=== PATIENT | female | born 2005 | race Caucasian/White ===

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

== ENCOUNTER 2025-03-18 21:24 | Emergency (ER) | payer OTHER, SELFPAY | END 2025-03-18 23:04 | disposition left against medical advice (07) | PROVIDERS: Emergency Provider Emergency Medicine | DX: M54.50 Low back pain, unspecified (principal) ==

== ENCOUNTER 2025-04-07 10:23 | Outpatient (AMB) | payer OTHER, SELFPAY ==
--- NOTE | 2025-04-07 10:25 | A.OFFVIS_ITS ---
Vital Signs 04/07/25 10:42 Height 5 ft 5 in Weight 239 lb BMI 39.8 BP 104/60 Intake Visit Reasons: Amenorrhea Intake Note: pt c/o no period since Jan, ?PCOS Fitness Club Manager: Fitness Club Manager Present Accompanied by: Significant Other Allergies No Known Allergies [No Known Allergies*] Allergy (Verified 04/07/25 10:25) Is last menstrual period known: Yes Last menstrual period: 01/13/25 HPI Comments Details: Patient is here today with concerns of irregular menses, accompanied by her partner Darell. Cycles skip for several months over the last few years. Menarche age 12. She reports mild facial acne, no hirsutism. UPT was negative today. She is not interested in control and reports she would be open to having a if it happened. [facility] Medical History (Updated 04/07/25 @ 11:57 by Yenni Scott CNM) Acne Family History Maternal Grandmother Lung cancer Father Diabetes Social History Alcohol intake: never Patient Tobacco Use Status: Current someday Tobacco user Current occupational status: employed Current occupation: [employer] Gender identity: Female Female Reproductive History Menstrual Age of Menarche: 13 Date of last menstrual period: 01/13/25 Review of Systems Const All systems reviewed & are unremarkable except as noted in HPI and below Endo Reports no additional complaints Physical Exam Vital Signs: Last Vital Signs BP 104/60 04/07/25 10:42 BMI result Body Mass Index 39.8 Const General: cooperative, healthy appearing and no acute distress Psych Appearance: well kempt Attitude: cooperative Thought process: Normal thought process present Results AMB Test Urine AMB Test Urine Negative Last Edit by JAYLA Silverman on 04/07/25 10:35 Results Reviewed Results Reviewed: Laboratory Last Values [facility] Clinic Negative 04/07/25 10:35 Assessment & Plan Assessment & Plan (1) Irregular menses: Code(s): N92.6 - Irregular menstruation, unspecified Category: Medical Plan: Discussed: Different causes for irregular cycles, PCOS, obesity, other. UPT is negative today. Advised to start a multivitamin or folic acid supplement if not using control to prevent a possible neural tube defect with an unintended . (2) Acne: Code(s): L70.9 - Acne, unspecified Category: Medical Qualifiers: Acne type: unspecified acne Qualified Code(s): L70.9 - Acne, unspecified Plan: Plan lab workup for PCOS and include an ultrasound of the pelvis. Follow up in person for test results. Weight management for cycle control benefit. The patient expressed understanding and agreement with the plan of care. All of her questions and concerns were addressed to the best of my ability. This note is constructed using voice recognition software. While every effort has been made to ensure accuracy, radiographer technologist errors may have been included. Plan See notes above. Orders: Orders Thyroid Stimulating Hormone Today L70.9 - Acne, unspecified, N92.6 - Irregular menstruation, unspecified Prolactin Today L70.9 - Acne, unspecified, N92.6 - Irregular menstruation, unspecified HCG Quantitative Today L70.9 - Acne, unspecified, N92.6 - Irregular menstruation, unspecified AMB HCG Urine Test Today N91.2 - Amenorrhea, unspecified Testosterone, Free/Total Today L70.9 - Acne, unspecified, N92.6 - Irregular menstruation, unspecified 17 Hydroxyprogesterone Today L70.9 - Acne, unspecified, N92.6 - Irregular menstruation, unspecified US pelvic and transvaginal Today L70.9 - Acne, unspecified, N92.6 - Irregular menstruation, unspecified Coding Level of Care Code Est Pt Level 3 (49446) Diagnoses Irregular menses N92.6 Acne, unspecified acne type L70.9 Acne type: unspecified acne
[2025-04-07 10:42] VITALS: BP 104/60; BMI 39.8
== END 2025-04-07 11:16 | disposition home or self-care (01) ==
LOC: HO.HWS 10:23
PROVIDERS: Visit Provider Advanced Practice Midwife
DX: N92.6 Irregular menstruation, unspecified (principal); L70.9 Acne, unspecified; N91.2 Amenorrhea, unspecified
CPT/HCPCS: 99213

== ENCOUNTER → 2025-04-07 10:23 | Outpatient (BNVA) | payer OTHER, SELFPAY | PROVIDERS: Visit Provider Advanced Practice Midwife | DX: N92.6 Irregular menstruation, unspecified (principal); L70.9 Acne, unspecified | CPT/HCPCS: 81025; 99212 ==

== ENCOUNTER 2025-04-18 12:34 | Outpatient (REF) | payer OTHER, SELFPAY ==
--- NOTE | ~2025-04-18 | US_ITS ---
CLINICAL HISTORY: N92.6 - Irregular menstruation, unspecified Exam: Pelvic ultrasound, transabdominal and transvaginal evaluation. Comparison: None. Findings: Transabdominal and transvaginal pelvic ultrasound studies performed. Urinary bladder is minimally distended on the transabdominal images. Uterus is anteverted. Uterus measures 7.8 x 3.0 x 4.6 cm in size. Heterogeneous echotexture throughout the myometrium. Partially exophytic subserosal fibroid is seen off the anterior aspect of the lower uterine segment measuring 7 x 6 x 5 mm in size. Endometrial stripe measures 6 mm in thickness without mass, polyp, or focal thickening. Small nabothian cysts. Right ovary measures 3.0 x 1.7 x 2.0 cm in size. Left ovary measures 3.5 x 1.9 x 2.8 cm in size. Prominent peripheral follicular pattern within both ovaries, [id number]-right. There is echogenic central stroma. Trace free pelvic fluid. Impression: 1. Small anterior partially exophytic fibroid. 2. Ultrasound findings suggestive of polycystic ovarian syndrome. Clinical correlation advised. This document has been electronically signed by: Lenin Casanova MD on 04/19/2025 10:24:21
== END 2025-04-18 12:35 | disposition home or self-care (01) ==
LOC: HO.US 12:34
PROVIDERS: Visit Provider Advanced Practice Midwife
DX: N92.6 Irregular menstruation, unspecified (principal); L70.9 Acne, unspecified
CPT/HCPCS: 76830; 76856

== ENCOUNTER → 2025-04-18 12:36 | Outpatient (BNV) | payer OTHER, SELFPAY | PROVIDERS: Visit Provider Radiology Diagnostic Radiology | DX: D25.9 Leiomyoma of uterus, unspecified (principal) | CPT/HCPCS: 76830; 76856 ==

== ENCOUNTER 2025-04-21 11:17 | Outpatient (REF) | payer OTHER, SELFPAY ==
[2025-04-21 12:32] LABS: HCG Quantitative < 2 mIU/mL
[2025-04-21 12:45] LABS: Thyroid Stimulating Hormone 2.13 uIU/mL (0.32-4.0)
[2025-04-27 11:59] LABS: Testosterone, Free 7.3 pg/mL (0.1-6.4); Testosterone, Total 47 ng/dL (2-45)
== END 2025-04-21 11:18 | disposition home or self-care (01) ==
LOC: HO.LAB 11:17
PROVIDERS: Visit Provider Advanced Practice Midwife
DX: N92.6 Irregular menstruation, unspecified (principal); L70.9 Acne, unspecified
CPT/HCPCS: 36415; 83498; 84146; 84402; 84403; 84443; 84702

== ENCOUNTER 2025-05-03 10:34 | Outpatient (AMB) | payer OTHER, SELFPAY ==
--- NOTE | 2025-05-03 10:36 | MHC.OFFVIS ---
Vital Signs 05/03/25 11:10 Height 5 ft 5 in Weight 238 lb BMI 39.6 BP 110/72 Intake Visit Reasons: US follow up Orchestrator: Orchestrator Present (Mylene) Accompanied by: Spouse Allergies No Known Allergies [No Known Allergies*] Allergy (Verified 05/03/25 10:52) HPI Comments Details: Patient is here today for a follow up on her test results accompanied with her partner. History of irregular cycles and facial acne. Family history of PCOS. LMP January. Labs: Prolactin 8.0, total testosterone 47, free testosterone 7.3, hydroxy progesterone acetate 66. She has used control pills in the past. She denies any contraindications to control such as: migraines with aura, history of DVT or pulmonary emboli, high blood pressure, liver disease, thrombolic disorders, Lupus, +SAM, breast cancer, or smoking. [facility] Medical History (Updated 05/03/25 @ 12:30 by Yenni Scott CNM) Fibroid Counseling for control, oral contraceptives PCOS (polycystic ovarian syndrome) Acne Family History Maternal Grandmother Lung cancer Father Diabetes Social History Alcohol intake: never Patient Tobacco Use Status: Current someday Tobacco user Current occupational status: employed Current occupation: hostess cashier Gender identity: Female Female Reproductive History Menstrual Age of Menarche: 13 Physical Exam Vital Signs: Last Vital Signs BP 110/72 05/03/25 11:10 BMI result Body Mass Index 39.6 Results AMB Test Urine AMB Test Urine Negative Last Edit by Miranda Latham CMA on 05/03/25 12:04 Results Reviewed Results Reviewed: Laboratory Last Values [facility]st Clinic Negative 05/03/25 12:[address] [address] Ultrasound Report Signed Patient: Zarina Duckworth MR#: [id number] : 2005 Acct:[id number] Age/Sex: 19 / F ADM Date: 04/18/25 Loc: HO.US Attending Dr: Yenni Scott CNM Ordering Physician: Yenni Scott CNM Date of Service: 04/18/25 Procedure(s): US pelvic and transvaginal Accession Number(s): [id number] cc: Yenni Scott CNM~ CLINICAL HISTORY: N92.6 - Irregular menstruation, unspecified Exam: Pelvic ultrasound, transabdominal and transvaginal evaluation. Comparison: None. Findings: Transabdominal and transvaginal pelvic ultrasound studies performed. Urinary bladder is minimally distended on the transabdominal images. Uterus is anteverted. Uterus measures 7.8 x 3.0 x 4.6 cm in size. Heterogeneous echotexture throughout the myometrium. Partially exophytic subserosal fibroid is seen off the anterior aspect of the lower uterine segment measuring 7 x 6 x 5 mm in size. Endometrial stripe measures 6 mm in thickness without mass, polyp, or focal thickening. Small nabothian cysts. Right ovary measures 3.0 x 1.7 x 2.0 cm in size. Left ovary measures 3.5 x 1.9 x 2.8 cm in size. Prominent peripheral follicular pattern within both ovaries, [id number]-[id number]-ogpy-right. There is echogenic central stroma. Trace free pelvic fluid. Impression: 1. Small anterior partially exophytic fibroid. 2. Ultrasound findings suggestive of polycystic ovarian syndrome. Clinical correlation advised. This document has been electronically signed by: Lenin Casanova MD on 04/19/2025 10:24:21 Dictated By: Lenin Casanova MD Signed By: <Electronically signed by Lenin Casanova MD in OV> 04/19/25 1025 DD/ 1024 TD/TT: 04/19/25 1024 Labor Relations Or Personnel Negotiator: Assessment & Plan Assessment & Plan (1) Irregular menses: Code(s): N92.6 - Irregular menstruation, unspecified Category: Medical (2) Encounter to discuss test results: Code(s): Z71.2 - Person consulting for explanation of examination or test findings Plan: Reviewed lab work and pelvic ultrasound results indicate a diagnosis of PCOS. UPT is negative today. The patient expressed understanding and agreement with the plan of care. All of her questions and concerns were addressed to the best of my ability. (3) Counseling for control, oral contraceptives: Code(s): Z30.09 - Encounter for other general counseling and advice on contraception Category: Medical Plan: Pill use- Start of pill: within 5 days of a normal menses, if greater than that, use a back up method or abstain for 7 days. Also may start if NO unprotected intimacy since the last normal menses (use a back up method for seven days)9. How to take: Take at the same time of day. Take with food if nausea occurs, and closer to bedtime may be helpful. What to do when missing a pill or taking one late: take as soon as you remember, and use a back up method (condoms, or abstinence is required) for 7 days. Side effects: break through bleeding, nausea, mood changes, breast tenderness, headaches, bloating. Most of these all resolve in the first 2-3 months of use. Warnings: serious complications from the pill associated with a DVT (deep viem thrombosis), risks to stroke, PE (pulmonary emboli), potentially fatal. Report any serious side effects: call 911 and seek medical emergenct treatment for any ACHES . Abdominal pain (sever). Chest pain (difficulty breathing). Headache (severe). Extremity pain(sudden pain in one extermity). Sudden blindness/loss of vision. Report any medical changes to our office so that we can determine if the pill is an appropriate method for continued use. Keep all follow up appointments for pill use surveilance as directed. (4) PCOS (polycystic ovarian syndrome): Code(s): E28.2 - Polycystic ovarian syndrome Category: Medical Plan: Counseled regarding PCOS diagnosis, importance of protecting the endometrial lining to prevent the development of a normal cells that can lead to uterine cancer. Intermittent progesterone versus control discussed referral to Endocrine if indicated for management. She chooses to start control pills. Advised no unprotected intimacy, repeat test as needed at home. Initiate progesterone followed by OCPs. The patient expressed understanding and agreement with the plan of care. All of her questions and concerns were addressed to the best of my ability. This note is constructed using voice recognition software. While every effort has been made to ensure accuracy, ballast regulator operator errors may have been included. (5) Fibroid: Code(s): D21.9 - Benign neoplasm of connective and other soft tissue, unspecified Category: Medical Plan Counseled re: Leiomyoma: common pelvic neoplasm. Differential diagnosis-may include but not limited to- leiomyosarcoma which is a rare uterine sarcoma 3-7/100,000, difficult to distinguish from fibroids on ultrasound from uterine sarcoma's. Unlikely any single test will have a highly positive predictive value. Hysterectomy is not recommended for sole purpose of excluding malignant neoplasm. Consult for surgical exploration, medical treatment, other treatments, verses expectant management, pros and cons, risks and benefits. Expectant management follow up in 6 months, then yearly for stability. Patient prefers to proceed with expectant management. Referral to MD if indicated for level of care if indicated Report any AUB, pelvic pressure, bloating, or pain. The patient expressed understanding and agreement with the plan of care. All of her questions and concerns were addressed to the best of my ability. Total time I personally spent on visit and management today: ?40 minutes. Time spent included review of pertinent office notes in the electronic health record; review of laboratory and imaging results; review of personal family medical history; performing physical exam; discussing diagnosis and plan of care with the patient; documenting the encounter in the EMR. Orders: Orders US pelvic and transvaginal 6 Months D21.9 - Benign neoplasm of connective and other soft tissue, unspecified AMB HCG Urine Test Today Z32.02 - Encounter for test, result negative Medications: New progesterone micronized (Prometrium) 200 mg PO ONCE 10 days 10 caps 0RF E28.2 - Polycystic ovarian syndrome drospirenone-ethinyl estradiol 3-0.02 mg (SUNNY (28)) 1 tab PO DAILY 28 tabs 3RF Coding Level of Care Code Est Pt Level 3 (44323) Diagnoses Irregular menses N92.6 Encounter to discuss test results Z71.2 Counseling for control, oral contraceptives Z30.09 PCOS (polycystic ovarian syndrome) E28.2 Fibroid D21.9
[2025-05-03 11:10] VITALS: BP 110/72; BMI 39.6
--- OUTSIDE RECORDS SUMMARY | 2025-05-03 12:13 | XMS_ITS | Continuity of Care Document ---
Author Organization [facility] Address [address] [place] [id number]- Care Team Providers Care Nailing Machine Feeder Name Role Phone Rosana Capellan LINE PREP COOK, Cristina Primary Care Physician Encounter [facility] Date(s): 03/28/25 - 04/27/[address] [address] Encounter Type: Triage Allergies, Adverse Reactions, Alerts No Known Allergies Immunizations Given and Recorded Vaccine Date Status Refusal Reason [id number] 12y+ bivalent booster vax 06/24/23 Given SARS-CoV-2 (COVID-19) mRNA BNT-162b2 vac 1 12/03/21 Given SARS-CoV-2 (COVID-19) mRNA BNT-162b2 vac 2 11/12/21 Given Meningococcal Conjugate Vaccine 11/12/21 Given influenza virus vaccine, inactivated 11/12/21 Give n influenza virus vaccine, inactivated 01/05/20 Give n influenza virus vaccine, inactivated 07/30/17 Give n influenza virus vaccine, inactivated 10/17/16 Give n influenza virus vaccine, inactivated 09/18/15 Give n influenza virus vaccine, inactivated 09/07/14 Give n influenza virus vaccine, inactivated 08/04/13 Give n influenza virus vaccine, inactivated 11/06/12 Darinel rded influenza virus vaccine, inactivated 11/04/11 Darinel rded influenza virus vaccine, inactivated 11/02/10 Darinel rded tetanus/diphtheria/pertussis, acel(Tdap) 07/30/17 Given Meningococcal Polysaccharide Vaccine 07/30/17 Give n Human Papillomavirus Vaccine 07/30/17 Given Human Papillomavirus Vaccine 04/11/16 Given Hepatitis A Pediatric Vaccine 11/06/12 Given Hepatitis A Pediatric Vaccine 11/04/11 Recorded Poliovirus Vaccine, Inactivated 11/02/10 Recorded Poliovirus Vaccine, Inactivated 04/22/06 Given Poliovirus Vaccine, Inactivated 01/14/06 Given Poliovirus Vaccine, Inactivated 05 Given diphtheria/tetanus/pertussis, acel(DTaP) 11/02/10 Recorded diphtheria/tetanus/pertussis, acel(DTaP) 02/17/07 Given diphtheria/tetanus/pertussis, acel(DTaP) 04/22/06 Given diphtheria/tetanus/pertussis, acel(DTaP) 01/14/06 Given diphtheria/tetanus/pertussis, acel(DTaP) 05 Given Varicella Virus Vaccine 09/22/09 Given Varicella Virus Vaccine 09/19/06 Given Measles/Mumps/Rubella Virus Vaccine 09/22/09 Given Measles/Mumps/Rubella Virus Vaccine 12/19/06 Given Influenza Inactive (IM) (oldterm) 08/17/09 Given Prevnar (oldterm) 08/28/07 Given Prevnar (oldterm) 04/22/06 Given Prevnar (oldterm) 02/14/06 Given Prevnar (oldterm) 05 Given Haemophilus B Conj Vaccine (oldterm) 12/19/06 Give n Haemophilus B Conj Vaccine (oldterm) 04/22/06 Give n Haemophilus B Conj Vaccine (oldterm) 02/14/06 Give n Haemophilus B Conj Vaccine (oldterm) 05 Give n Hepatitis B Vaccine (old term) 04/22/06 Given Hepatitis B Vaccine (old term) 01/14/06 Given Hepatitis B Vaccine (old term) 05 Given 1Result Comment: diluent lot # [id number] exp 05/23 2Result Comment: diluent normal saline lot [id number] 05/23 Problem List Condition Confirmation Course Effective Dates Status H ealth Status Informant Adjustment disorder with mixed anxiety and depressed mood Confirmed Active Asthma Confirmed Active ADHD (attention deficit hyperactivity disorder) Confirmed Active Chronic eczema Confirmed Active Seasonal allergies Confirmed Active Healthy child on routine physical examination Confirmed Active Social History Social History Type Response Sex Female Sex Representation Female (finding) Patient Care team information Care Team Personnel Name: Cristina Bryant NP Position: [facility] PCO Associate Professional Member Role: PCP Address: [address] [place] [id number] Telecom: Care Team Related Persons Name: FRANCISCO ROGERS Name: JAYJAY HU Name: LISSETH CARMONA Insurance Providers Guarantor name: JAYJAY HU Health Plan Information #: 1 Payer: [facility] Member Number: NA Policy Number: NA Group Number: NA
== END 2025-05-03 13:19 | disposition home or self-care (01) ==
LOC: HO.HWS 10:35
PROVIDERS: Visit Provider Advanced Practice Midwife
DX: N92.6 Irregular menstruation, unspecified (principal); Z71.2 Person consulting for explanation of examination or test findings; Z30.09 Encounter for other general counseling and advice on contraception; E28.2 Polycystic ovarian syndrome; D21.9 Benign neoplasm of connective and other soft tissue, unspecified; Z32.02 Encounter for pregnancy test, result negative
CPT/HCPCS: 99213

== ENCOUNTER → 2025-05-03 10:34 | Outpatient (BNVA) | payer OTHER, SELFPAY | PROVIDERS: Visit Provider Advanced Practice Midwife | DX: N92.6 Irregular menstruation, unspecified (principal); E28.2 Polycystic ovarian syndrome; D21.9 Benign neoplasm of connective and other soft tissue, unspecified; Z71.2 Person consulting for explanation of examination or test findings; Z30.09 Encounter for other general counseling and advice on contraception | CPT/HCPCS: 81025; 99212 ==

== ENCOUNTER 2025-05-04 03:12 | Emergency (ER) | payer OTHER, SELFPAY ==
[2025-05-04 03:28] VITALS: BP 121/79; PULSE 98; RESP 18; TEMP 37.3; O2SAT 98; BMI 38.4
--- NOTE | 2025-05-04 04:07 | PC.NURSE ---
labs collected and sent.
[2025-05-04 04:18] LABS: IDNOW Serial# 55D5AD1C; Strep A Nucleic Acid Negative (Negative)
[2025-05-04 04:23] VITALS: O2SAT 98
--- NOTE | 2025-05-04 04:40 | PC.NURSE ---
pt walk out without notifying staff.
[2025-05-04 04:45] LABS: Influenza A PCR NEGATIVE (Negative); Influenza B PCR NEGATIVE (Negative); Resp Syncy Virus RNA Qual PCR NEGATIVE (Negative); SARS COV2 PCR INHOUSE NEGATIVE (Negative)
== END 2025-05-04 04:41 | disposition left against medical advice (07) ==
PROVIDERS: Emergency Provider Emergency Medicine
DX: R51.9 Headache, unspecified (principal); Z53.21 Procedure and treatment not carried out due to patient leaving prior to being seen by health care provider; J02.9 Acute pharyngitis, unspecified; Z03.818 Encounter for observation for suspected exposure to other biological agents ruled out
CPT/HCPCS: 0241U; 87651; 99281; 99283; 99284